=== PATIENT | male | born 1970 | race Two or more races ===

== ENCOUNTER 2025-10-01 03:56 | Emergency (ER) | payer OTHER, SELFPAY ==
--- NOTE | ~2025-10-01 | CT_ITS ---
CLINICAL HISTORY: Fall, posterior neck pain CT cervical spine without contrast Comparison: None provided Findings: Vertebral alignment is within normal limits. The atlantooccipital joints are unremarkable. There is a normal C1-C2 relationship. No significant degenerative change. No acute fractures or dislocations. Visualized intracranial contents are unremarkable. No cervical fluid collections or masses. No consolidation or effusion at the lung apices. IMPRESSION: No acute findings. This document has been electronically signed by: Chito Harris MD on 10/01/2025 05:13:43
--- NOTE | ~2025-10-01 | XR_ITS ---
EXAMINATION: XR CHEST CLINICAL INFORMATION: fever COMPARISON: None available. TECHNIQUE: AP view of the chest was obtained. FINDINGS: Pulmonary reticular pattern. No hyperinflation. No pleural effusion or pneumothorax. Cardiomediastinal silhouette appears prominent. Mild multilevel spondylosis, thoracic spine. XR/XR chest 1V IMPRESSION: Concerning acute small airway inflammatory processes versus multifocal pneumonia among other etiologies. Electronically signed by: Rajiv Hunter MD 10/01/2025 06:52 AM EST
--- NOTE | ~2025-10-01 | CT_ITS ---
CLINICAL HISTORY: Unwitnessed fall, head strike CT head without contrast Comparison: None provided Findings: No intra-axial mass, midline shift, hydrocephalus, or acute hemorrhage. No significant atrophy-like change or white matter disease. There is no sinus or mastoid fluid. The orbits are within normal limits. No skull fracture. IMPRESSION: 1. No acute intracranial findings. This document has been electronically signed by: Chito Harris MD on 10/01/2025 05:11:54
--- NOTE | ~2025-10-01 | XR_ITS ---
CLINICAL HISTORY: fall, pain 4 view right knee Comparison: None provided Findings: There is a curvilinear soft tissue calcification with corticated borders visualized immediately adjacent to the medial femoral condyle, Which is probably chronic and related to prior injury. Otherwise no acute depressed or displaced fracture identified. No significant arthritic change or erosions. No joint effusion. No radiopaque foreign body. IMPRESSION: Soft tissue calcification adjacent to the medial femoral condyle, presumably from prior trauma. No priors for comparison. If this is the site of pain, acute injury/fracture not completely excluded. Consider additional imaging with CT scan if clinically warranted. No dislocation or joint effusion. This document has been electronically signed by: Chito Harris MD on 10/01/2025 04:51:49
[2025-10-01 04:02] VITALS: BP 132/71; BP 150/90; PULSE 90; PULSE 98; RESP 18; TEMP 38; O2SAT 96; O2SAT 97; BMI 28.2
--- NOTE | 2025-10-01 04:08 | ECG_ITS ---
Test Reason : DIZZINESS Blood Pressure : */* mmHG Vent. Rate : 89 BPM Atrial Rate : 89 BPM P-R Int : 156 ms QRS Dur : 82 ms QT Int : 340 ms P-R-T Axes : 52 34 44 degrees QTcB Int : 413 ms Normal sinus rhythm Minimal voltage criteria for LVH, may be normal variant ( Sokolow-Gaitan ) Borderline ECG No previous ECGs available Referred By: Sona Tenorio Electronically Signed By: SUNG LIU MD
[2025-10-01 04:10] VITALS: BP 132/71; PULSE 90; RESP 18; TEMP 38; O2SAT 96
--- NOTE | 2025-10-01 04:16 | ED_ITS ---
HPI - Fall General Chief Complaint: Fall Stated Complaint: UNWIT FALL,DIZZY,NECK/HEAD/R KNEE PAIN,SEC 21 Time Seen by Provider: 10/01/25 03:59 Source: patient and EMS Mode of arrival: EMS Limitations: no limitations History of Present Illness ED Provider: Dr. Sona Tenorio HPI Narrative: Patient comes to the emergency room from [facility] via ambulance. According to the staff, the patient had an unwitnessed fall. Patient states that he was going up to the restroom and he fell. Patient states that he believes he was blacking out and then he may have passed out but does not remember. Patient complaining of head pain in the posterior aspect of the head, mild neck pain. Patient states that he does not take any blood thinners. Also, patient states that before he was in [facility], he was in another hospital and he was wearing a band for high risk fall. Also, patient complaining of right knee pain. Patient denies any chest pain or shortness of breath Related Data Allergies Allergy/AdvReac Type Severity Reaction Status Date / Time No Known Allergies Allergy Verified 10/01/25 04:09 Review of Systems 2 Review of Systems: Constitutional : No Weight loss, No Fever, No Chills, No Night Sweats, No Fatigue, No Malaise ENT/Mouth : No Hearing loss, No Ear Pain, No Nasal Congestion, No Sinus Pain, No Hoarseness, No sore throat, No Rhinorrhea, No Swallowing Difficulty Eyes: No Eye Pain, No Swelling, No Redness, No Foreign Body, No Discharge, No Vision Changes Cardiovascular : No Chest Pain, No SOB, No Dyspnea on Exertion, No Orthopnea, No Edema, No Palpitations Respiratory : No Cough, No Sputum, No Wheezing, No Smoke Exposure, No Dyspnea Gastrointestinal : No Nausea, No Vomiting, No Diarrhea, No Constipation, No abdominal Pain, No Hematochezia, No Melena Genitourinary : no irregular bleeding, No Dysuria, No Urinary Frequency, No Hematuria, No Urinary Incontinence, No Urgency, No Flank Pain, No Urinary Flow Changes, No Hesitancy Musculoskeletal : Complaining of mild right-sided knee pain., No Myalgias, No Joint Swelling Skin : No Skin Lesions, No rash Neuro : No Weakness, No Numbness, No Paresthesias, No Loss of Consciousness, complaining of headache in the posterior aspect of the head, complaining of dizziness /blacking out which leads with the patient falling. Psych : No Anxiety/Panic, No Depression, No SI/HI/AH/VH, No Social Issues, Heme/Lymph: No Bruising, No Bleeding,No Lymphadenopathy Endocrine : No Polyuria, No Polydipsia, No Temperature Intolerance PMF Social History Social History Alcohol intake: never Use of substances other than those prescribed or required for medical reasons: No Any prior treatment program specific to substance use: No Advance Directives: No Advance Directives Information Provided: Yes Do you have a plan to hurt others: No Plan Physical Exam 2 Exam: Exam: Appearance: Alert. Oriented X3. No acute distress. Eyes: Pupils equal, round and reactive to light. ENT: Pharynx normal. Neck: on C-spine precautions, mild pain to palpation on the posterior aspect of the neck bilaterally, no C-spine tenderness or palpable step-offs CVS: Normal heart rate and rhythm. Pulses normal. Normal S1 and S2 Respiratory: No respiratory distress. Breath sounds normal. No Wheezing. No rales Abdomen: Soft and nontender. No rigidity. No distention. Skin: Skin warm and dry. Normal skin color. Normal skin turgor. Extremities: No lower extremity edema. No Lacerations. No Rash. Patient able to flex and extend hips and knees bilaterally, no obvious effusion or ecchymosis in the knee. Neuro: Oriented X 3. No motor deficit. No sensory deficit. Moving all extremities. No slurred speech. CN 2 through 12 grossly intact Psych: calm, cooperative, normal affect Vital Signs: Vital Signs: Last Vital Signs Temp 100.4 F 10/01/25 04:10 Pulse 90 10/01/25 04:10 Resp 18 10/01/25 04:10 BP 132/71 10/01/25 04:10 Pulse Ox 96 10/01/25 04:10 O2 Del Method Room Air 10/01/25 04:10 BMI result Body Mass Index 28.2 Course Course Course Narrative: Patient reports of history of frequent falling. Denies chest pain or shortness of breath. Complaining mostly of posterior head pain, neck pain and right knee pain all of patient's labs and imaging pending. Medical Decision Making Medical Decision Making [facility] Narrative: my interpretation of EKG: Normal sinus rhythm, heart rate 89, no ST segment depression or elevation, no T-wave inversion, QTC 413 my interpretation of labs: No significant abnormality in patient's hematology or chemistry, normal LFTs, normal troponin. Urinalysis negative for UTI, urine toxicology negative for drugs of abuse, ETOH negative, serology negative for influenza RSV and COVID head CT and cervical spine CT: No acute findings orthostatic vitals are negative patient states that this time he has no chest pain or shortness of breath, no palpitations, no lower extremity swelling or calf pain. It is likely that patient had a vasovagal syncope when he went to the bathroom. Differential Diagnosis Differential Diagnoses: The differential diagnosis associated with the presentation includes ( orthostatic hypotension, vasovagal near-syncope, medication side-effect) Lab Data MDM Lab Attestation statement: I reviewed the patient's lab results. 10/01/25 04:47 10/01/25 04:47 Labs: Lab Results 10/01/25 10/01/25 10/01/25 Range/Units 04:47 04:48 04:51 WBC 6.8 (4.8-10.8) X10*3/uL RBC 3.66 L (4.60-5.80) X10*6/uL Hgb 11.5 L (14.0-18.0) g/dl Hct 33.0 L (42.0-52.0) % MCV 90.2 (80.0-98.0) fL MCH 31.4 (27.0-33.0) pg MCHC 34.8 (31.0-36.0) g/dl RDW 11.8 (11.0-16.0) % Plt Count 206 (160-400) X10*3/uL MPV 8.7 L (9.4-12.4) fL Immature Gran % (Auto) 0.6 H (0.0-0.4) % Neut % (Auto) 85.7 H (45-73) % Lymph % (Auto) 3.2 L (20-40) % [place] % (Auto) 9.4 (2-11) % Eos % (Auto) 1.0 (0-4) % Baso % (Auto) 0.1 (0-2) % Lymph # (Auto) 0.2 L (1.2-4.9) X10*3/uL [place] # (Auto) 0.6 (0.1-1.2) X10*3/uL Eos # (Auto) 0.1 (0.0-0.4) X10*3/uL Baso # (Auto) 0.0 (0.0-0.2) X10*3/uL Abs Immat Gran (auto) 0.04 H (0.00-0.03) X10*3/uL Absolute Neuts (auto) 5.9 (2.0-8.3) x10*3/uL Absolute Nucleated RBC 0.000 (0.0-0.012) X10*3/uL Nucleated RBC % (auto) 0.0 (0.0-0.2) /100WBC Sodium 137 (135-145) mmol/L Potassium 4.4 (3.3-5.1) mmol/L Chloride 102 (96-108) mmol/L Carbon Dioxide 28 (22-29) mmol/L Anion Gap 11 L (12-20) BUN 15 (9-16) mg/dL Creatinine 0.94 (0.5-1.4) mg/dL Estim Creat Clear Calc 99.1 Estimated GFR > 60 Random Glucose 102 (60-115) mg/dL Calcium 8.4 (8.4-10.2) mg/dL Magnesium 1.6 (1.6-2.6) mg/dL Total Bilirubin 1.3 H (0.0-1.0) mg/dL Direct Bilirubin 0.4 (0.0-0.5) mg/dL AST 24 (5-37) U/L ALT 23 (0-40) U/L Alkaline Phosphatase 58 (39-117) U/L Troponin I High Sens 3.0 (<3.5-35.0) ng/L Total Protein 6.2 L (6.5-8.0) g/dL Albumin 3.7 (3.5-5.0) g/dL Urine Color Yellow Urine Appearance Clear Urine pH >= 9.0 (5.0-9.0) Ur Specific [place] 1.020 (1.005-1.025) Urine Protein Negative (Neg-Trace) mg/dL Urine Glucose (UA) Negative (Negative) mg/dL Urine Ketones Negative (Negative) mg/dL Urine Blood Negative (Negative) Urine Nitrite Negative (Negative) Ur Leukocyte Esterase Negative (Negative) Urine Opiates Screen Not Detected (Not Detect) Ur Buprenorphine Scrn Not Detected (Not Detect) ng/mL Ur Oxycodone Screen Not Detected (Not Detect) ng/mL Urine Methadone Screen Not Detected (Not Detect) ng/mL Urine Fentanyl Screen Not Detected (Not Detect) Ur Barbiturates Screen Not Detected (Not Detect) Ur Phencyclidine Scrn Not Detected (Not Detect) Ur Amphetamines Screen Not Detected (Not Detect) U Benzodiazepines Scrn Not Detected (Not Detect) Urine Cocaine Screen Not Detected (Not Detect) U Marijuana (THC) Screen Not Detected (Not Detect) Ethyl Alcohol < 10 mg/dL Influenza Type A (PCR) NEGATIVE (Negative) Influenza Type B (PCR) NEGATIVE (Negative) RSV RNA Qual (PCR) NEGATIVE (Negative) SARS-CoV-2 RNA (RT-PCR) NEGATIVE (Negative) Independent Interpretation I performed an independent interpretation of an: CT Scan Radiology Impression Discussion of test interpretation with radiology: I have reviewed the radiologist's reading. Radiologist Impression: Vertebral alignment is within normal limits. The atlantooccipital joints are unremarkable. There is a normal C1-C2 relationship. No significant degenerative change. No acute fractures or dislocations. Visualized intracranial contents are unremarkable. No cervical fluid collections or masses. No consolidation or effusion at the lung apices. No intra-axial mass, midline shift, hydrocephalus, or acute hemorrhage. No significant atrophy-like change or white matter disease. There is no sinus or mastoid fluid. The orbits are within normal limits. No skull fracture. Discharge Plan Discharge Clinical Impression: Unwitnessed fall, Closed head injury Patient Disposition: Home, Self-Care Instructions: Head Injury (ED), Fall Prevention (ED) Print Language: Hebrew
--- NOTE | 2025-10-01 04:19 | PC.NURSE ---
Assumed care of pt, presents with unwitnessed fall at [place], pt states that he went to the bathroom but does not remember falling, pt has c-collar placed by EMS, pt c/o right facial and right knee pain, aaox3, -blood thinner, +head-strike, +LOC
--- OUTSIDE RECORDS SUMMARY | 2025-10-01 04:35 | XMS_ITS | Clinical Summary ---
Author Organization [facility] Address [address] [place] [address] Care Team Providers Care Lamp Cleaner Name Role Phone Zach Babcock MD Primary Care Provider [phone] Zach Babcock MD Unavailable [phone] Allergies Active Allergy Reactions Criticality Noted Date Comments Dextromethorphan Hbr Unknown Penicillins GI Intolerance Level of certainty: Moderately Certain Medications * This document contains information received from the source organization and may not represent a complete record from that organization. thiamine (Vitamin B1) 100 MG tablet Take 1 tablet (100 mg total) by mouth in the morning. 5 Active folic acid (FOLVITE) 1 MG tablet Take 1 tablet (1 mg total) by mouth in the morning. 5 Active naloxone (NARCAN) 4 mg/actuation [place] nasal spray 1 spray (4 mg total) by Intranasal route every 5 minutes as needed (opioid overdose) for up to 2 doses. as needed for opioid overdose. Give CPR and contact 911. May give 2nd dose 2-3 minutes later with the second device into the other nostril if no or minimal response. 2 each 5 Active Active Problems Problem Noted Date Diagnosed Date Overdose opiate, accidental or unintentional, initial encounter 09/15/2025 Thigh hematoma, right, sequela 04/19/2024 Encounters Date Type Department Care Team Description 09/15/2025 6:12 PM EST - 09/21/2025 4:04 PM EST Hospital Encounter [facility] 3 Nursing Unit [address] [facility] 3rd [place] [address] Jeffrey Hernadez MD Cowley, Susan, DO Koster, Megan, MD Lwin, MD Halle Lara Matias, MD Accidental drug overdose, initial encounter (Primary Dx); Overdose of undetermined intent, initial encounter; Chest pain, unspecified type Discharge Disposition: [facility] 09/15/2025 Travel from Last 3 Months Immunizations Immunization Administration Dates Next Due Influenza Vaccine - STANDARD - PF (FLUZONE/FLUARIX/FLULAVAL/AFLURIA) 10/22/2021 Tdap Vaccine (BOOSTRIX/ADACEL) 3,12/29/2020,06/17/2020,2018 Social History Tobacco Use Types Packs/Day Years Used Date Smoking Tobacco: Every Day Cigarettes 1.5 6.9 Started: 10/2018 Passive Smoke Exposure: Never Smokeless Tobacco: Never Tobacco Cessation:Ready to Q uit: No; Counseling Given: No Alcohol Use Standard Drinks/Week Comments Never 0 (1 standard drink = 0.6 oz pur e alcohol) Humiliation, Afraid, Rape, a nd Kick questionnaire Answer Date Recorded Within the last year, have y ou been afraid of your partner or ex-partner? Patient unable to answer 09/15/2025 Emotionally Abused Not on file 09/15/2025 Physically Abused Not on file 09/15/2025 Sexually Abused Not on file 09/15/2025 Overall Financial Resource Strain (CARDIA) Answe r Date Recorded How hard is it for you to pa y for the very basics like food, housing, medical care, and heating? Patient unable to answer 09/15/2025 Hunger Vital Sign Answer Date Recorded Within the past 12 months, y ou worried that your food would run out before you got the money to buy more. Patient unable to answer 09/15/2025 Ran Out of Food in the Last Year Not on file 09/15/2025 PRAPARE - Transportation Answer Date Re corded In the past 12 months, has l ack of transportation kept you from medical appointments or from getting medications? Patient unable to answer 09/15/2025 In the past 12 months, has l ack of transportation kept you from meetings, work, or from getting things needed for daily living? Patient unable to answer 09/15/2025 Housing Stability Vital Sign Answer Darrin e Recorded In the last 12 months, was t here a time when you were not able to pay the mortgage or rent on time? Patient unable to answer 09/15/2025 Number of Times Moved in the Last Year Not on fi le 09/15/2025 At any time in the past 12 m [facility], were you homeless or living in a correction (including now)? Patient unable to answer 09/15/2025 [facility] Utilities Answer Date Recorded In the past 12 months has th e electric, gas, oil, or water company threatened to shut off services in your home? Patient unable to answer 09/15/2025 Food Insecurity Answer Date Recorded Within the past 12 months, y ou worried that your food would run out before you got the money to buy more. Patient unable to answer 09/15/2025 Ran Out of Food in the Last Year Not on file 09/15/2025 Intimate Partner Violence Answer Date R ecorded Emotionally Abused Not on file 09/15/2025 Within the last year, have y ou been afraid of your partner or ex-partner? Patient unable to answer 09/15/2025 Physically Abused Not on file 09/15/2025 Sexually Abused Not on file 09/15/2025 Housing Stability Answer Date Recorded Unstable Housing in the Last Year Not on file 09/15/2025 In the last 12 months, was t here a time when you were not able to pay the mortgage or rent on time? Patient unable to answer 09/15/2025 [address] Lived in the Last Year Not on f ile 09/15/2025 AUDIT C Answer Date Recorded How often have you had a dri nk containing alcohol, in the past year? 3 09/20/2025 How many standard drinks con taining alcohol have you had on a typical day when you are drinking, in the past year? 1 1 11/20/2024 How often have you had six o r more drinks on one occasion, in the past year? 2 09/20/2025 Sex and Gender Information Value Date Recorded Sex Assigned at Male 12/07/2023 4:43 AM EST Legal Sex Male 8:15 PM EST Gender Identity Male 12/07/2023 4:43 AM EST Sexual Orientation Not on file Last Filed Vital Signs Vital Sign Reading Time Taken Comments Blood Pressure 152/85 09/21/2025 7:47 AM EST Pulse 55 09/21/2025 7:47 AM EST Temperature 36.8 C (98.2 F) 09/21/2025 7:47 AM EST Respiratory Rate 18 09/21/2025 7:47 AM EST Oxygen Saturation 98% 09/21/2025 7:47 AM EST Inhaled Oxygen Concentration - - Weight 73.9 kg (162 lb 14.7 oz) 09/17/2025 5:20 AM EST Height 180.3 cm (5' 11 ) 09/15/2025 10: 35 PM EST Body Mass Index 22.72 09/15/2025 10:35 PM EST Plan of Treatment Health Maintenance Due Date Last Done Comments PSA 1972 Prostate Cancer Screening 1972 SDM [address] Colonography 01/08/2017 Colonoscopy 01/08/2017 Colorectal Cancer Screening 01/08/2017 FIT 01/08/2017 FOBT 01/08/2017 Multitarget Stool DNA (Cologuard) 01/08/2017 Sigmoidoscopy 01/08/2017 Pneumococcal Vaccine: 50+ Years (2 of 2 - PCV) 02/17/2018 02/17/2017, 07/21/2009 Lipid Panel 12/05/2020 12/05/2019, 07/24, 08/21/2019, Additional history exists Zoster Vaccine (1 of 2) 01/08/2022 COVID-19 Vaccine ( - season) 2025 Influenza Vaccine (#1) 2025 , 08/10/2020, 10/10/2019, Additional history exists Blood Pressure 09/21/2026 09/21/2025 DTaP,Tdap,and Td Vaccines (11 - Td or Tdap) 04/21/2033 04/21/2023, 04/10/2023, 02/20/2022, Additional history exists Hepatitis C Screening Completed 08/17/2019, 012 Meningococcal B Vaccines Aged Out No longer eligible based on patient's age to complete this topic Meningococcal Vaccines Aged Out No lo nger eligible based on patient's age to complete this topic Procedures Procedure Name Priority Date/Time Associated Diagnosis Comments MAGNESIUM STAT 09/21/2025 10:15 AM EST COMPREHENSIVE METABOLIC PANEL STAT 09/21/2025 10:15 AM EST CBC STAT 09/21/2025 10:15 AM EST POCI GLUCOSE Routine 09/21/2025 4:25 AM EST POCI GLUCOSE Routine 09/21/2025 12:11 AM EST POCI GLUCOSE Routine 09/20/2025 7:43 PM EST POCI GLUCOSE Routine 09/20/2025 4:49 PM EST POCI GLUCOSE Routine 09/20/2025 11:54 AM EST MAGNESIUM STAT 09/20/2025 5:34 AM EST COMPREHENSIVE METABOLIC PANEL STAT 09/20/2025 5:34 AM EST CBC STAT 09/20/2025 5:34 AM EST POCI GLUCOSE Routine 09/20/2025 5:30 AM EST POCI GLUCOSE Routine 09/20/2025 12:16 AM EST POCI GLUCOSE Routine 09/19/2025 8:22 PM EST POCI GLUCOSE Routine 09/19/2025 5:36 PM EST POCI GLUCOSE Routine 09/19/2025 12:41 PM EST MAGNESIUM STAT 09/19/2025 5:14 AM EST COMPREHENSIVE METABOLIC PANEL STAT 09/19/2025 5:14 AM EST CBC STAT 09/19/2025 5:14 AM EST POCI GLUCOSE Routine 09/19/2025 5:11 AM EST POCI GLUCOSE Routine 09/18/2025 11:38 PM EST POCI GLUCOSE Routine 09/18/2025 8:08 PM EST MAGNESIUM STAT 09/18/2025 6:29 AM EST COMPREHENSIVE METABOLIC PANEL STAT 09/18/2025 6:29 AM EST CBC STAT 09/18/2025 6:29 AM EST POCI GLUCOSE Routine 09/18/2025 3:44 AM EST POCI GLUCOSE Routine 09/17/2025 11:45 PM EST POCI GLUCOSE Routine 09/17/2025 8:15 PM EST POCI GLUCOSE Routine 09/17/2025 4:59 PM EST CBC AND DIFFERENTIAL STAT 09/17/2025 8:16 AM EST CBC AND DIFFERENTIAL STAT 09/17/2025 8:16 AM EST POCI GLUCOSE Routine 09/17/2025 7:58 AM EST MAGNESIUM STAT 09/17/2025 6:41 AM EST COMPREHENSIVE METABOLIC PANEL STAT 09/17/2025 6:41 AM EST CBC STAT 09/17/2025 6:41 AM EST CK (CREATINE KINASE) STAT 09/17/2025 6:41 AM EST POCI GLUCOSE Routine 09/17/2025 4:03 AM EST POCI GLUCOSE Routine 09/17/2025 12:10 AM EST POCI GLUCOSE Routine 09/16/2025 8:13 PM EST POCI GLUCOSE Routine 09/16/2025 12:28 PM EST POCI GLUCOSE Routine 09/16/2025 8:06 AM EST ECG 12-LEAD Routine 09/16/2025 7:42 AM EST Overdose of undetermined intent, initial encounter PHOSPHORUS Routine 09/16/2025 5:28 AM EST BILIRUBIN, DIRECT Routine 09/16/2025 5:2 8 AM EST MAGNESIUM STAT 09/16/2025 5:28 AM EST CBC STAT 09/16/2025 5:28 AM EST CK (CREATINE KINASE) STAT 09/16/2025 5:28 AM EST COMPREHENSIVE METABOLIC PANEL STAT 09/16/2025 5:28 AM EST POCI GLUCOSE Routine 09/16/2025 5:10 AM EST TYPE AND SCREEN STAT 09/16/2025 12:31 AM EST CBC STAT 09/16/2025 12:31 AM EST BLOOD GAS, VENOUS STAT 09/16/2025 12: 31 AM EST CK (CREATINE KINASE) STAT 09/16/2025 12:31 AM EST MAGNESIUM STAT 09/16/2025 12:31 AM EST COMPREHENSIVE METABOLIC PANEL STAT 09/16/2025 12:31 AM EST XR PORTABLE CHEST 1 VW Routine 09/15/2025 11:54 PM EST POCI GLUCOSE Routine 09/15/2025 10:49 PM EST POCI GLUCOSE Routine 09/15/2025 10:21 PM EST POCI GLUCOSE Routine 09/15/2025 9:50 PM EST POCI GLUCOSE Routine 09/15/2025 9:08 PM EST POCI GLUCOSE Routine 09/15/2025 8:48 PM EST C-REACTIVE PROTEIN Routine 09/15/2025 8: 46 PM EST PHOSPHORUS Routine 09/15/2025 8:46 PM EST MAGNESIUM Routine 09/15/2025 8:46 PM EST CK (CREATINE KINASE) STAT 09/15/2025 8:46 PM EST HS-TROPONIN T, 1HR STAT 09/15/2025 8: 46 PM EST ED ULTRASOUND GUIDED PIV Routine 09/15/2025 7:55 PM EST CBC AND DIFFERENTIAL STAT 09/15/2025 7:51 PM EST CBC AND DIFFERENTIAL STAT 09/15/2025 7:51 PM EST TOXICOLOGY SCREEN, BLOOD STAT 09/15/2025 7:51 PM EST TSH REFLEX FRT4,T3 STAT 09/15/2025 7: 51 PM EST HS TROPONIN T (REFLEX 1HR, 3HR) STAT 09/15/2025 7:51 PM EST LIPASE STAT 09/15/2025 7:51 PM EST COMPREHENSIVE METABOLIC PANEL STAT 09/15/2025 7:51 PM EST DRUG SCREEN, URINE STAT 09/15/2025 7: 21 PM EST URINALYSIS WITH URINE CULTURE REFLEX STAT 09/15/2025 7:21 PM EST ECG 12-LEAD STAT 09/15/2025 6:44 PM EST HDL CHOLESTEROL Routine 08/21/2019 7:04 AM EDT HEPATITIS C ANTIBODY Routine 08/17/2019 6:33 PM EDT from Last 3 Months or Most Recently Relevant to Health Maintenance Results * (ABNORMAL) CBC (09/21/2025 10:15 AM EST) Only the most recent of7 resultswithin the time period is included. WBC 4.04 4.00 - 11.00 K/uL 09/21/2025 10:22 AM [facility] RBC 3.91(L) 4.30 - 5.80 M/uL 09/21/2025 10:22 AM [facility] Hemoglobin 12.0(L) 13.5 - 17.5 g/dL 09/21/2025 10:22 AM [facility] Hematocrit 36.1(L) 41.0 - 53.0 % 09/21/2025 10:22 AM [facility] MCV 92 80 - 94 fL 09/21/2025 10:22 AM [facility] MCH 30.7 26.0 - 33.0 pg 09/21/2025 10:22 AM [facility] MCHC 33.2 31.0 - 37.0 g/dL 09/21/2025 10:22 AM [facility] RDW 11.8 11.5 - 14.5 % 09/21/2025 10:22 AM [facility] Platelet Count 267 150 - 400 K/uL 09/21/2025 10:22 AM EST [facility] Nucleated RBC 0 <=0 #/100 WBC 09/21/2025 10:22 AM EST [facility] Blood PERIPHERAL BLOOD SPECIMEN / Unknown Venipuncture / Unknown 09/21/2025 10:15 AM EST 09/21/2025 10:18 AM EST Sherrill Hou DO LAB BLOOD ORDERABLES Final Resul t Performing Organization Address City/[facility] Co de Phone Number [facility] [address] [place] [address], * Magnesium (09/21/2025 10:15 AM EST) Only the most recent of8 resultswithin the time period is included. Magnesium, Blood 1.6 1.6 - 2.6 mg/dL 09/21/2025 10:53 AM EST [facility] Blood PERIPHERAL BLOOD SPECIMEN / Unknown Venipuncture / Unknown 09/21/2025 10:15 AM EST 09/21/2025 10:18 AM EST Ness Pickard MD LAB BLOOD ORDERABLES Final Resul t Performing Organization Address [facility] de Phone Number [facility] [address] [place] [address], * (ABNORMAL) Comprehensive Metabolic Panel (09/21/2025 10:15 AM EST) Only the most recent of8 resultswithin the time period is included. Sodium 140 136 - 145 mmol/L 09/21/2025 10:53 AM EST [facility] Potassium 4.3 3.5 - 5.1 mmol/L 09/21/2025 10:53 AM EST [facility] Comment:Specimen hemolyzed; result may be invalid. Interpret with caution. Chloride 103 98 - 107 mmol/L 09/21/2025 10:53 AM EST [facility] Total CO2/Bicarbonate 30(H) 22 - 29 mmol/L 09/21/2025 10:53 AM EST [facility] Anion Gap 7 2 - 15 mmol/L 09/21/2025 10:53 AM [facility] BUN 12 6 - 20 mg/dL 09/21/2025 10:53 AM [facility] Creatinine, Blood 0.90 0.70 - 1.20 mg/dL 09/21/2025 10:53 AM [facility] Glucose, Blood 127(H) 74 - 109 mg/dL 09/21/2025 10:53 AM [facility] Calcium 8.8 8.6 - 10.0 mg/dL 09/21/2025 10:53 AM [facility] Total Protein 6.1(L) 6.4 - 8.3 g/dL 09/21/2025 10:53 AM [facility] Albumin, Blood 3.7 3.5 - 5.2 g/dL 09/21/2025 10:53 AM [facility] AST (SGOT) 28 <=50 U/L 09/21/2025 10:53 AM [facility] ALT (SGPT) 22 <=50 U/L 09/21/2025 10:53 AM [facility] Alkaline Phosphatase 59 40 - 129 U/L 09/21/2025 10:53 AM [facility] Total Bilirubin 1.2(H) <1.2 mg/dL 10:53 AM [facility] Estimated GFR(CKD-EPI) 102 >=60 mL/min/BSA 09/21/2025 10:53 AM [facility] Blood PERIPHERAL BLOOD SPECIMEN / Unknown Venipuncture / Unknown 09/21/2025 10:15 AM EST 09/21/2025 10:18 AM EST us Ness Pickard MD LAB BLOOD ORDERABLES Final Resul t [facility] [address] [place] [address], * (ABNORMAL) POCT Glucose (09/21/2025 4:25 AM EST) Only the most recent of29 resultswithin the time period is included. Glucose, POC 117(H) 70 - 110 mg/dL 09/21/2025 4:27 AM [facility] Comment: Expected results for non-diabetics are: Before meals: 70 - 99 mg/dL 2 hour post meal: < 140 mg/dL Critical values: < 50 and > 400 mg/dL Limitations of the Nova Stat Strip Method are as follows: -The range of the Nova Stat Strip meter is 0-600 mg/dL. -Lipemic samples: Triglycerides > 750 mg/dL may effect results. -Not to be used with severely hypotensive or dehydrated patients. -Improper technique/dosing of test strip will yield false results. -Do not use blood collection tubes containing fluoride (campo top) as sodium fluoride interferes with test results. Blood 09/21/2025 4:25 AM EST 09/21/2025 4:27 AM EST [facility] - 09/21/2025 4:27 AM EST Library Technician: Elsa Li us Tucker Neri MD POCT ORDERABLES - DEVICE Final Result [facility] [address] [place] [address], * (ABNORMAL) CBC and Differential (09/17/2025 8:16 AM EST) Only the most recent of2 resultswithin the time period is included. WBC 4.49 4.00 - 11.00 K/uL 09/17/2025 8:27 AM [facility] RBC 4.02(L) 4.30 - 5.80 M/uL 09/17/2025 8:27 AM [facility] Hemoglobin 12.4(L) 13.5 - 17.5 g/dL 09/17/2025 8:27 AM [facility] Hematocrit 37.6(L) 41.0 - 53.0 % 09/17/2025 8:27 AM [facility] Comment:Specimen checked for clots,volume,ID.Results checked. MCV 94 80 - 94 fL 09/17/2025 8:27 AM [facility] MCH 30.8 26.0 - 33.0 pg 09/17/2025 8:27 AM [facility] MCHC 33.0 31.0 - 37.0 g/dL 09/17/2025 8:27 AM [facility] RDW 11.6 11.5 - 14.5 % 09/17/2025 8:27 AM [facility] Platelet Count 233 150 - 400 K/uL 09/17/2025 8:27 AM [facility] Nucleated RBC 0 <=0 #/100 WBC 09/17/2025 8:27 AM [facility] Neutrophil 49.7 30.0 - 85.0 % 09/17/2025 8:27 AM [facility] Lymphocyte 38.5 15.0 - 50.0 % 09/17/2025 8:27 AM [facility] Monocyte 9.4 2.0 - 12.0 % 09/17/2025 8:27 AM [facility] Eosinophil 2.0 0.0 - 5.0 % 09/17/2025 8:27 AM [facility] Basophil 0.2 0.0 - 2.0 % 09/17/2025 8:27 AM [facility] Immature Granulocyte ([place], Myelo, Promyelocyte) 0.2 0.0 - 1.0 % 09/17/2025 8:27 AM [facility] Absolute Neutrophil Count 2.23 1.20 - 9.30 K/uL 09/17/2025 8:27 AM [facility] Absolute Lymphocyte Count 1.73 0.60 - 5.50 K/uL 09/17/2025 8:27 AM [facility] Absolute Monocyte Count 0.42 0.08 - 1.30 K/uL 09/17/2025 8:27 AM [facility] Absolute Eosinophil Count 0.09 0.00 - 0.68 K/uL 09/17/2025 8:27 AM [facility] Absolute Basophil Count 0.01 0.00 - 0.20 K/uL 09/17/2025 8:27 AM [facility] Absolute Immature Granulocyte ([place], Myelo, Promyelocyte) 0.01 0.00 - 0.10 K/uL 09/17/2025 8:27 AM [facility] Blood PERIPHERAL BLOOD SPECIMEN / Unknown Venipuncture / Unknown 09/17/2025 8:16 AM EST 09/17/2025 8:20 AM EST Ness Pickard MD LAB BLOOD ORDERABLES Final Resul t Performing Organization Address City/[facility] Co de Phone Number [facility] [address] [place] [address], * CK (Creatine Kinase) (09/17/2025 6:41 AM EST) Only the most recent of4 resultswithin the time period is included. Creatine Kinase Total (CK) 131 <=190 U/L 09/17/2025 7:36 AM EST [facility] Blood PERIPHERAL BLOOD SPECIMEN / Unknown Venipuncture / Unknown 09/17/2025 6:41 AM EST 09/17/2025 6:49 AM EST Sherrill Hou DO LAB BLOOD ORDERABLES Final Resul t Performing Organization Address [facility] de Phone Number [facility] [address] [place] [address], * ECG 12 lead (09/16/2025 7:42 AM EST) Only the most recent of2 resultswithin the time period is included. Ventricular Heart Rate 60 BPM EKG BUR MUSE Atrial Heart Rate 60 BPM EKG BUR MUSE NM Interval 148 ms EKG BUR MUSE QRSD Interval 88 ms EKG BUR MUSE QT Interval 440 ms EKG BUR MUSE QTC Interval 440 ms EKG BUR MUSE P [place] -16 degrees EKG BUR MUSE R [place] 68 degrees EKG BUR MUSE T Wave [place] 79 degrees EKG BUR MUSE 09/16/2025 7:42 AM EST 09/21/2025 11:18 AM EST Narrative EKG BUR MUSE - 09/21/2025 11:18 AM EST Normal sinus rhythm with sinus arrhythmia Minimal voltage criteria for LVH, may be normal variant ( Sokolow-Gaitan ) T wave abnormality, consider anterior ischemia Abnormal ECG When compared with ECG of 15-Sep-2025 18:44, (unconfirmed) No significant change was found Confirmed by Luis E Brown ([id number]) on 09/21/2025 11:18:00 AM Procedure Note Luis E Brown MD - 09/21/2025 Normal sinus rhythm with sinus arrhythmia Minimal voltage criteria for LVH, may be normal variant ( Sokolow-Gaitan ) T wave abnormality, consider anterior ischemia Abnormal ECG When compared with ECG of 15-Sep-2025 18:44, (unconfirmed) No significant change was found Confirmed by Luis E Brown ([id number]) on 09/21/2025 11:18:00 AM us Sherrill Cleveland DO ECG ORDERABLES Final Result Performing Organization Address City/[facility] Co de Phone Number [facility] [address] [address] * Phosphorus (09/16/2025 5:28 AM EST) Only the most recent of2 resultswithin the time period is included. Phosphorus 3.2 2.5 - 4.5 mg/dL 09/16/2025 7:49 AM EST [facility] Blood PERIPHERAL BLOOD SPECIMEN / Unknown 09/16/2025 5:28 AM EST 09/16/2025 5:35 AM EST [employer] LAB BLOOD ORDERABLES Final Resul t Performing Organization Address [facility] de Phone Number [facility] [address] [place] [address], * Bilirubin, Direct (09/16/2025 5:28 AM EST) Direct Bilirubin 0.5 0.1 - 0.5 mg/dL 09/16/2025 7:49 AM EST [facility] Comment:Specimen hemolyzed; result may be invalid. Interpret with caution. Blood PERIPHERAL BLOOD SPECIMEN / Unknown 09/16/2025 5:28 AM EST 09/16/2025 5:35 AM EST [employer] LAB BLOOD ORDERABLES Final Resul t Performing Organization Address City/[facility]/ZIP Co de Phone Number [facility] [address] [place] [address], [place] * Type and Screen (09/16/2025 12:31 AM EST) ABO and Rh A POS 09/16/2025 1:36 AM EST [facility] Antibody Screen NEG 1:36 AM EST [facility] TS Expiration Date 09/19/2025 23:59 09/16/2025 1:36 AM EST [facility] Blood PERIPHERAL BLOOD SPECIMEN / Unknown 09/16/2025 12:31 AM EST 09/16/2025 12:59 AM EST [facility] [place] DO [facility]OD BANK TEST ORDERABLES Final Result Performing Organization Address City/[facility]/ZIP Co de Phone Number [facility] [address] [place] [address], [place] * (ABNORMAL) Blood Gas, Venous (09/16/2025 12:31 AM EST) pH, Venous 7.38 7.32 - 7.42 09/16/2025 12:49 AM EST [facility] pCO2, Venous 56(H) 41 - 51 mmHg 09/16/2025 12:49 AM EST [facility] pO2, Venous 51(H) 38 - 42 mmHg 09/16/2025 12:49 AM EST [facility] HCO3, Venous 33(H) 24 - 26 mmol/L 09/16/2025 12:49 AM [facility] % O2Hb, Venous 84(H) 60 - 75 % 09/16/2025 12:49 AM [facility] Base Excess, Venous 6.0(H) -2.0 - 2.0 mmol/L 09/16/2025 12:49 AM EST [facility] Patient Temperature 37.0 09/16/2025 12:49 AM EST [facility] Blood Venipuncture / Unknown 09/16/2025 12:31 AM EST 09/16/2025 12:47 AM EST Sherrill [employer] LAB BLOOD ORDERABLES Final Resul t [facility] [address] [place] [address], * XR Chest 1 VW Portable (09/15/2025 11:54 PM EST) Anatomical Region Laterality Modality Chest Digital Radiogra phy 09/16/2025 12:2 8 AM EST Impressions 09/16/2025 6:24 AM EST No imaging evidence of an acute cardiopulmonary process. I, the attending physician, attest that I have performed and/or supervised the resident for the torres and critical components of this procedure. I have personally reviewed the images pertinent to this examination and agree with the interpretation. Reported By: Tg Multani M.D. ([id number]) Signed By: Laci Ardon M.D. ([id number]) Report Date/Time: 09/16/2025 6:24 AM Report ID: [id number] Narrative 09/16/2025 6:24 AM EST RESPONSIBLE TECHNICAL SALES ASSOCIATE: Laci Ardon M.D. EXAMINATION: XR CHEST 1 VW PORTABLE CLINICAL INDICATION: Altered mental status TECHNIQUE: AP semi upright projection of the chest obtained portably at 23:50. COMPARISON: None available FINDINGS: Lungs: There is no consolidation or pulmonary edema. Pleura: There is no pleural effusion or pneumothorax. Heart/Mediastinum: The cardiomediastinal silhouette is unremarkable. There are atherosclerotic calcifications of the aorta. Bones/Soft Tissues: There are degenerative changes in the imaged bones, typical for age. Soft tissues are normal. Procedure Note Laci Ardon MD - 09/16/2025 RESPONSIBLE TECHNICAL SALES ASSOCIATE: Laci Ardon M.D. EXAMINATION: XR CHEST 1 VW PORTABLE CLINICAL INDICATION: Altered mental status TECHNIQUE: AP semi upright projection of the chest obtained portably at 23:50. COMPARISON: None available FINDINGS: Lungs: There is no consolidation or pulmonary edema. Pleura: There is no pleural effusion or pneumothorax. Heart/Mediastinum: The cardiomediastinal silhouette is unremarkable.There are atherosclerotic calcifications of the aorta. Bones/Soft Tissues: There are degenerative changes in the imaged bones,typical for age. Soft tissues are normal. IMPRESSION: No imaging evidence of an acute cardiopulmonary process. I, the attending physician, attest that I have performed and/or supervised the resident for the torres and critical components of this procedure. I have personally reviewed the images pertinent to this examination and agree with the interpretation. Reported By: Tg Multani M.D. ([id number]) Signed By: Laci Ardon M.D. ([id number]) Report Date/Time: 09/16/2025 6:24 AM Report ID: [id number] us Sherrill Hou DO IMG DIAGNOSTIC IMAGING ORDERABLE S Final Result * hs-Troponin T, 1hr (09/15/2025 8:46 PM EST) Troponin T HS 9 <=22 ng/L 09/15/2025 9:30 PM EST [facility] Comment:Draw interval less t buck 1 hour, no delta check performed. Blood PERIPHERAL BLOOD SPECIMEN / Unknown Venipuncture / Unknown 09/15/2025 8:46 PM EST 09/15/2025 9:00 PM EST us Jeffrey Hernadez MD LAB BLOOD ORDERABLES Final Resu lt Performing Organization Address City/[facility]/ZIP Co de Phone Number [facility] [address] [place] [address], * C-Reactive Protein (09/15/2025 8:46 PM EST) C-Reactive Protein (CRP) <3.0 <5.0 mg/L 09/16/2025 1:08 AM EST [facility] Blood PERIPHERAL BLOOD SPECIMEN / Unknown Venipuncture / Unknown 09/15/2025 8:46 PM EST 09/15/2025 9:00 PM EST us Sherrill Hou DO LAB BLOOD ORDERABLES Final Resul t Performing Organization Address City/[facility]/ZIP Co de Phone Number [facility] [address] [place] [address], [place] * US Guided PIV (09/15/2025 7:55 PM EST) Narrative Jeffrey Hernadez MD - 09/15/2025 7:55 PM EST Jeffrey Hernadez MD 09/15/2025 10:46 PM Ultrasound Guided Peripheral IV Performed by: Neymar Mireles MD Authorized by: Jeffrey Hernadez MD Ultrasound Guided Peripheral IV: Date/time: 09/15/2025 7:55 PM Ultrasound guided: Yes Indications: Nurse unable to obtain IV access Cleansing agent: Chloraprep Needle gauge: 20 G Catheter length (cm): 5 Location: Left forearm Attempts: 1 Findings: Needle or catheter visualized in vein Complications: None Patient tolerance: Patient tolerated the procedure well with no immediate complications Dressing: Dressing applied and taped ED ultrasound performed and interpreted in real time by Neymar Mireles MD us Jeffrey Hernadez MD PROCEDURE/MINOR SURGICAL ORDERA BLES Final Result * Hs-Troponin (with reflex 0, 1, +/-3 hours) (09/15/2025 7:51 PM EST) Troponin T HS 8 <=22 ng/L 09/15/2025 8:40 PM EST [facility] Blood PERIPHERAL BLOOD SPECIMEN / Unknown Venipuncture / Unknown 09/15/2025 7:51 PM EST 09/15/2025 7:57 PM EST us Jeffrey Hernadez MD LAB BLOOD ORDERABLES Final Resu lt Performing Organization Address City/[facility]/ZIP Co de Phone Number [facility] [address] [place] [address] * TSH with Rflex to Free T4 and T3 (09/15/2025 7:51 PM EST) TSH 1.30 0.27 - 4.20 uIU/mL 09/15/2025 8:40 PM EST [facility] Blood PERIPHERAL BLOOD SPECIMEN / Unknown Venipuncture / Unknown 09/15/2025 7:51 PM EST 09/15/2025 7:57 PM EST us Jeffrey Hernadez MD LAB BLOOD ORDERABLES Final Resu lt Performing Organization Address City/[facility]/ZIP Co de Phone Number [facility] [address] [place] [address] * Toxicology Screen, Plasma (09/15/2025 7:51 PM EST) Pathologist [facility] Acetaminophen Result,Blood <5 <=30 ug/mL 09/15/2025 8:40 PM EST [facility] Alcohol <10 <=10 mg/dL 09/15/2025 8:40 PM EST [facility] Salicylate Level, Blood <1 <=10 mg/dL 09/15/2025 8:40 PM EST [facility] Blood PERIPHERAL BLOOD SPECIMEN / Unknown Venipuncture / Unknown 09/15/2025 7:51 PM EST 09/15/2025 7:57 PM EST us Jeffrey Hernadez MD LAB BLOOD ORDERABLES Final Resu lt Performing Organization Address City/[facility]/ZIP Co de Phone Number [facility] [address] [place] [address], [place] * Lipase (09/15/2025 7:51 PM EST) Pathologist [facility] Lipase 36 13 - 60 U/L 09/15/2025 8:40 PM EST [facility] Blood PERIPHERAL BLOOD SPECIMEN / Unknown Venipuncture / Unknown 09/15/2025 7:51 PM EST 09/15/2025 7:57 PM EST us Jeffrey Hernadez MD LAB BLOOD ORDERABLES Final Resu lt Performing Organization Address City/[facility]/ZIP Co de Phone Number [facility] [address] [place] [id number], [place] * (ABNORMAL) Drug Screen, Urine (09/15/2025 7:21 PM EST) Pathologist [facility] Amphetamines Screen, Urine Negative Negative 09/15/2025 8:05 PM EST [facility] Barbiturates Screen, Urine Negative Negative 09/15/2025 8:05 PM EST [facility] Benzodiazepine Screen, Urine Positive(A) Negative 09/15/2025 8:05 PM EST [facility] Comment:A Positive result is not routinely confirmed. This specimen will be held for 1 week, during which time you may request confirmatory testing be added on by ordering BENZODIAZEPINE, URINE, CONFIRMATION Cannabinoids Screen, Urine Negative Negative 09/15/2025 8:05 PM [facility] Cocaine Metabolite Screen, Urine Positive(A) Negative 09/15/2025 8:05 PM [facility] Comment:A Positive result is not routinely confirmed. This specimen will be held for 1 week, during which time you may request confirmatory testing be added on by ordering COCAINE, URINE, CONFIRMATION Fentanyl Screen, Urine Positive(A) Negative 09/15/2025 8:05 PM [facility] Comment:A Positive result is not routinely confirmed. This specimen will be held for 1 week, during which time you may request confirmatory testing be added on by ordering FENTANYL CONFIRMATION, URINE Methadone Screen, Urine Positive(A) Negative 09/15/2025 8:05 PM [facility] Comment:A Positive result is not routinely confirmed. This specimen will be held for 1 week, during which time you may request confirmatory testing be added on by ordering METHADONE, URINE, CONFIRMATION Opiates Screen, Urine Negative Negative 09/15/2025 8:05 PM [facility] Oxycodone Screen, Urine Negative Negative 09/15/2025 8:05 PM [facility] Comment The [facility] performs toxicology screens for the clinical management of the patient. The laboratory does not perform toxicology screens for LEGAL or EMPLOYMENT purposes. TEST CUTOFF CONCENTRATION VALUE ---- Amphetamine/Met hamphetamine 1000 ng/mL Barbiturates 200 ng/mL Benzodiazepines 200 ng/mL Cocaine 300 ng/mL Methadone 300 ng/mL Opiates 300 ng/mL THC 50 ng/mL Oxycodone 100 ng/mL Fentanyl 5 ng/mL Results below the numerical cutoff indicate that either no drug OR a drug level below the cutoff value is present in the specimen. 09/15/2025 8:05 PM [facility] Urine URINE SPECIMEN / Unknown Collection / Unknown 09/15/2025 7:21 PM EST 09/15/2025 7:29 PM EST us Jeffrey Hernadez MD URINE ORDERABLES Final Result [facility] [address] [place] [address], [place] * (ABNORMAL) Urinalysis with Reflex to Urine Culture (09/15/2025 7:21 PM EST) Color, Urine Light yellow Yellow 09/15/2025 7:54 PM [facility] Clarity, Urine Clear Clear 09/15/2025 7:54 PM [facility] pH, Urine 6.0 5.0 - 8.0 09/15/2025 7:54 PM [facility] Protein, Urine Negative Negative 09/15/2025 7:54 PM [facility] Glucose, Urine Negative Negative 09/15/2025 7:54 PM [facility] Ketone, Urine Negative Negative 09/15/2025 7:54 PM [facility] Bilirubin, Urine Negative Negative 09/15/2025 7:54 PM [facility] Blood, Urine Negative Negative 09/15/2025 7:54 PM [facility] Leukocyte Esterase, Urine Negative Negative 09/15/2025 7:54 PM [facility] Nitrite, Urine Negative Negative 09/15/2025 7:54 PM [facility] Specific [place], Urine 1.020 1.002 - 1.030 09/15/2025 7:54 PM [facility] Red Blood Cell, Urine 0-2 0-5 cells/HPF cells/HPF 09/15/2025 7:54 PM [facility] Squamous Epithelial Cells 0-5 0-5 cells/HPF /HPF 09/15/2025 7:54 PM [facility] Mucous Threads 1+(A) None Seen 09/15/2025 7:54 PM [facility] Hyaline Cast 0-2 0-5 casts/LPF cast/LPF 09/15/2025 7:54 PM [facility] Urine MID-STREAM URINE SPECIMEN / Unknown Collection / Unknown 09/15/2025 7:21 PM EST 09/15/2025 7:29 PM EST us Jeffrey Hernadez MD URINE ORDERABLES Final Result [facility] [address] [place] [address], [place] * HDL Cholesterol (08/21/2019 7:04 AM EDT) HDL Cholesterol 47 >40 mg/dL CONV ERSION FROM [facility] 08/21/2019 7:04 AM EDT 08/21/2019 12:14 PM EDT us Historical Conversion Provider LAB BLOOD THONY TAPIA Final Result CONVERSION FROM [facility] * Hepatitis C Antibody (08/17/2019 6:33 PM EDT) Hepatitis C Antibody NEG NEG N/A CONVERSION FROM [facility] 08/17/2019 6:33 PM EDT 08/18/2019 12:40 AM EDT us Historical Conversion Provider MD GODINEZ BLOOD THONY TAPIA Final Result CONVERSION FROM [facility] from Last 3 Months or Most Recently Relevant to Health Maintenance Insurance [facility] Advance Directives Documents on File Type Date Recorded Patient Quality Assurance Advisor Expl anation Health Care Proxy 09/22/2025 3:48 PM Healt h Care Proxy Health Care Proxy 09/18/2025 2:31 PM * Full Code (Latest Code Status on File) Date Activated Date Inactivated Comments 09/16/2025 1:22 AM Question Answer Comments Discussed with/per: Health Care Agent (P rimary or Alternate) Based on my assessment, the patient lacks capacity due to the following medical condition(s): altered mental status Provider Instructions: Navigate to ACP a ctivity to activate the Surrogate Decision Maker * Full Code Date Activated Date Inactivated Comments 09/15/2025 10:53 PM 09/16/2025 1:22 AM Question Answer Comments Discussed with/per: Patient Healthcare Agents on File Name Relationship Healthcare Agent Relationship Communication Basilai Castellano Unknown Health Care Agent Rosita Castellano Unknown Health Care Agen t - Alternate Care Teams Lamp Cleaner Relationship Specialty Start Date End Date Zach Babcock MD [address] [place] [id number] PCP - General 04/18/24 Zach Babcock MD [address] [place] [phone] PCP - Insurance Assigned PCP 02/22/25
--- OUTSIDE RECORDS SUMMARY | 2025-10-01 04:35 | XMS_ITS | Clinical Summary ---
Author Organization [facility] Address [address] [facility] [address] [place] [address] Care Team Providers Care Metal Checker Name Role Phone No Pcp, Per Patient Primary Care Provider Sherrill Smith MD Unavailable [phone] Allergies Active Allergy Reactions Criticality Noted Date Comments Penicillins 06/30/2022 Guaifenesin Nausea / Vomiting 01/15/2025 Medications ibuprofen 600 mg tabletIndicatio ns:Contusion of right chest wall, initial encounter Take 1 tablet (600 mg) by mouth every 8 (eight) hours if needed for pain. Take with food and plenty of fluids 10 tablet 3 Active lidocaine HCL 4 % adhesive patch,medicated Indications:Spa sm of left trapezius muscle Apply 1 patch topically once daily. 10 patch 5 Active Active Problems Problem Noted Date Diagnosed Date Altered mental status 03/05/2022 Encounters Date Type Department Care Team Description 08/27/2025 4:40 AM EST - 08/27/2025 6:08 AM EST Emergency [facility] Emergency Department [address] [place] [address] Elizabeth Pappas MD Back pain, unspecified back location, unspecified back pain laterality, unspecified chronicity (Primary Dx); Homelessness Discharge Disposition: Home or self care 08/27/2025 Travel from Last 3 Months Social History Tobacco Use Types Packs/Day Years Used Date Smoking Tobacco: Every Day Cigarettes Tobacco Cessation:Ready to Q uit: Not Asked; Counseling Given: Not Answered Overall Financial Resource Strain (CARDIA) Answe r Date Recorded How hard is it for you to pa y for the very basics like food, housing, medical care, and heating? Patient declined 08/27/2025 Hunger Vital Sign Answer Date Recorded Within the past 12 months, y ou worried that your food would run out before you got the money to buy more. Patient declined Ran Out of Food in the Last Year Not on file 08/27/2025 PRAPARE - Transportation Answer Date Re corded In the past 12 months, has l ack of transportation kept you from medical appointments or from getting medications? Patient declined 08/27/2025 In the past 12 months, has l ack of transportation kept you from meetings, work, or from getting things needed for daily living? Patient declined 08/27/2025 Housing Stability Vital Sign Answer Darrin e Recorded Unable to Pay for Housing in the Last Year Not o n file 08/27/2025 Number of Times Moved in the Last Year Not on fi le 08/27/2025 At any time in the past 12 m onths, were you homeless or living in a [facility] (including now)? Patient declined 08/27/2025 Utilities Answer Date Recorded In the past 12 months has th e [employer], gas, oil, or water company threatened to shut off services in your home? Patient declined 08/27/2025 Sex and Gender Information Value Date Recorded Sex Assigned at Male 01/15/2025 2:52 AM EDT Legal Sex Male 9:47 PM EST Gender Identity Male 01/15/2025 2:52 AM EDT Sexual Orientation Not on file Last Filed Vital Signs Vital Sign Reading Time Taken Comments Blood Pressure 154/70 08/27/2025 6:07 AM EST Pulse 70 08/27/2025 6:07 AM EST Temperature 36 C (96.8 F) 08/27/2025 6:07 AM EST Respiratory Rate 16 08/27/2025 6:07 AM EST Oxygen Saturation 97% 08/27/2025 6:07 AM EST Inhaled Oxygen Concentration - - Weight 77.1 kg (170 lb) 06/30/2022 5:53 AM EDT Height 175.3 cm (5' 9 ) 06/30/2022 5:53 AM EDT Body Mass Index 25.1 06/30/2022 5:53 AM EDT Plan of Treatment Health Maintenance Due Date Last Done Comments CT Colonography 1972 Colonoscopy 1972 Colorectal Cancer Screening 1972 FIT-DNA 1972 FIT 1972 FOBT 1972 HIV Screening 1972 Lipid Panel 1972 Sigmoidoscopy 1972 Tobacco Cessation Counseling 1972 MMR Vaccines (1 of 1 - Standard series) 01/08/1973 Hepatitis C Screening 01/08/1990 Hepatitis A Vaccines (1 of 2 - Risk 2-dose series) 01/08/1991 Pneumococcal Vaccine: 50+ Years (2 of 2 - PCV) 02/17/2018 02/17/2017, 07/21/2009 Zoster Vaccines (1 of 2) 01/08/2022 Hepatitis B Vaccines (3 of 3 - 19+ 3-dose series) 04/17/2022 02/20/2022, 08/10/2020 Depression Screening 10/22/2024 COVID-19 Vaccine ( - season) 2025 Influenza Vaccine (#1) 2025 2, 08/10/2020, 10/10/2019, Additional history exists DTaP/Tdap/Td Vaccines (8 - Td or Tdap) 04/21/2033 04/21/2023, 02/20/2022, 12/29/2020, Additional history exists Pneumococcal Vaccine: Pediatrics (0 to 5 Years) and At-Risk Patients (6 to 49 Years) Discontinued 02/17/2017, 07/21/2009 HIB Vaccines Aged Out No longer eligi ble based on patient's age to complete this topic HPV Vaccines (No Doses Required) Completed IPV Vaccines Aged Out No longer eligi ble based on patient's age to complete this topic Meningococcal B Vaccine Aged Out No l onger eligible based on patient's age to complete this topic Meningococcal Vaccine Aged Out No lenore marcio eligible based on patient's age to complete this topic Rotavirus Vaccines Aged Out No longer eligible based on patient's age to complete this topic Insurance Care Teams Metal Checker Relationship Specialty Start Date End Date No Pcp, Per Patient [place] PCP - General 06/30/22 Sherrill Gee MD [address] [place] [address] & [address] [place] [id number] 06/30/22
[2025-10-01 05:00] LABS: Hematocrit 33.0 % (42.0-52.0); Hemoglobin 11.5 g/dl (14.0-18.0); Imm Gran Abs Auto 0.04 X10*3/uL (0.00-0.03); Imm Gran Pct Auto 0.6 % (0.0-0.4); Lymphocytes Absolute Auto 0.2 X10*3/uL (1.2-4.9); MANUAL DIFF FLAG NO; Mean Corpuscular HGB Conc 34.8 g/dl (31.0-36.0); Mean Corpuscular Hemoglobin 31.4 pg (27.0-33.0); Mean Corpuscular Volume 90.2 fL (80.0-98.0); NRBC Abs Auto 0.000 X10*3/uL (0.0-0.012); NRBC Pct Auto 0.0 /100WBC (0.0-0.2); Platelet Count 206 X10*3/uL (160-400); Red Blood Count 3.66 X10*6/uL (4.60-5.80); White Blood Count 6.8 X10*3/uL (4.8-10.8)
[2025-10-01 05:02] LABS: Appearance Urine Clear; Glucose Urine UA Negative (Negative); PH >= 9.0 (5.0-9.0); Specific Gravity - Urine 1.020 (1.005-1.025)
[2025-10-01 05:14] LABS: Cannabinoid Screen Urine Not Detected (Not Detect)
[2025-10-01 05:18] LABS: Alanine Aminotransferase 23 U/L (0-40); Albumin Level 3.7 g/dL (3.5-5.0); Alkaline Phosphatase 58 U/L (39-117); Anion Gap 11 (12-20); Aspartate Amino Transferase 24 U/L (5-37); Blood Urea Nitrogen 15 mg/dL (9-16); Calcium 8.4 mg/dL (8.4-10.2); Carbon Dioxide 28 mmol/L (22-29); Chloride 102 mmol/L (96-108); Creatinine Clr Calc Pharmacy 99.1; Estimated Glomerular Filt Rate > 60; Magnesium 1.6 mg/dL (1.6-2.6); Potassium 4.4 mmol/L (3.3-5.1); Sodium 137 mmol/L (135-145); Total Protein 6.2 g/dL (6.5-8.0)
[2025-10-01 05:19] LABS: Troponin-I High Sensitivity 3.0 ng/L (<3.5-35.0)
[2025-10-01 05:37] LABS: Resp Syncy Virus RNA Qual PCR NEGATIVE (Negative); SARS COV2 PCR INHOUSE NEGATIVE (Negative)
[2025-10-01 06:10] VITALS: BP 135/71; PULSE 81
[2025-10-01 06:12] VITALS: BP 125/62; BP 134/69; PULSE 85; PULSE 98
[2025-10-01 07:33] VITALS: BP 126/68; PULSE 76; RESP 18; TEMP 38.1; O2SAT 95
== END 2025-10-01 08:01 ==
PROVIDERS: Emergency Provider Emergency Medicine; PCP Internal Medicine
DX: S09.90XA Unspecified injury of head, initial encounter (principal); R42 Dizziness and giddiness; M54.2 Cervicalgia; R51.9 Headache, unspecified; M25.561 Pain in right knee; Z91.81 History of falling; W01.0XXA Fall on same level from slipping, tripping and stumbling without subsequent striking against object, initial encounter; R94.31 Abnormal electrocardiogram [ECG] [EKG]; Y93.01 Activity, walking, marching and hiking; Y92.002 Bathroom of unspecified non-institutional (private) residence as the place of occurrence of the external cause; Y99.8 Other external cause status; Z03.818 Encounter for observation for suspected exposure to other biological agents ruled out; Z51.81 Encounter for therapeutic drug level monitoring; Z79.899 Other long term (current) drug therapy
CPT/HCPCS: 36415; 70450; 71045; 72125; 73564; 80048; 80076; 80307; 81003; 83735; 84484; 85025; 87637; 93005; 99284; 99285

== ENCOUNTER → 2025-10-01 04:08 | Outpatient (BNV) | payer OTHER, SELFPAY | PROVIDERS: Emergency Provider Emergency Medicine; PCP Internal Medicine; Visit Provider Internal Medicine Cardiovascular Disease | DX: R42 Dizziness and giddiness (principal) | CPT/HCPCS: 93010 ==